=== PATIENT | male | born 1940 | race Caucasian/White ===

== ENCOUNTER 2018-04-17 09:51 | Emergency (ER) | payer MEDICARE, OTHER ==
[~2018-04-17] VITALS: Ht 177.8 cm; Wt 90.9 kg
[~2018-04-17 09:51] MED LIST: AMBIEN5 MG PO; ANTIDEPRESANT; ANTIDEPRESSANT; ASPIR-LOW81 MG PO; ASPIR-LOX325 MG PO; ASPIRIN 81M81 MG/TA2 PO; BUPROPION75 MG PO; CELEXA; CELEXA40 MG PO; COUMADIN 5MG5 MG/TAB PO; CRESTOR; CRESTOR20 MG PO; DULCOLAX TAB5 MG PO; EC NAPROSYN500 MG PO; FERRO-TIME325 MG PO; HCTZ 25MG TAB25 MG PO; HCTZ 25MG25 MG PO; HYDROCHLOROTHIA25 MG PO; HYTRIN 2MG CAPSU2 MG PO; LIPITOR 40MG TA40 MG PO; LISINOPRIL; LOPRESSOR; LORTAB 5/500 501 TAB PO; MECLIZINE25 MG PO; METOPROLOL100 MG PO; OMEPRAZOLE20 MG PO; PERCOCET 325 MG1 TA2 PO; PRILOSEC 20MG20 MG PO; PRINIVIL40 MG PO; REQUIP 0.5MG0.5 MG PO; TERAZOSIN HCL PO; TOPROL XL50 MG PO; ULTRAM 50MG TAB50 MG PO; VIAGRA100 M1; WARFARIN SOD5 MG PO; WATER PILL; WELLBUTRIN 75MG75 MG PO; ZITHROMAX 250M250 MG PO
[2018-04-17 09:57] VITALS: TEMP 97.7
[2018-04-17 10:25] LABS: BASO # 0.1 (0.0-0.2); BASO % 1.4 % (0.0-2.0); EOS # 0.3 (0.0-0.7); EOS % 6.5 % (0-4.0); GRAN # 2.7 (1.4-6.5); GRAN % 54.2 % (42.2-75.2); HEMATOCRIT 44.8 % (42.0-52.0); HEMOGLOBIN 15.3 g/dl (13.5-18.0); LYMPH # 1.4 (1.2-3.4); LYMPH % 28.1 % (20.0-51.0); MEAN CELL VOLUME 93 fl (80.0-100.0); MEAN CORPUSCULAR HEMOGLOBIN 32 pg (27.0-31.0); MEAN CORPUSCULAR HGB CONC 34 g/dl (33.0-37.0); MEAN PLATELET VOLUME 11.3 fl (7.4-10.4); MONO # 0.5 (0.1-0.6); MONO % 9.4 % (1.7-9.3); PLATELET COUNT 167 K/mm3 (130-400); RED BLOOD COUNT 4.83 M/mm3 (4.20-5.60); REDCELL DISTRIBUTION WIDTH-CV 12.7 % (11.5-14.5)
[2018-04-17 10:32] LABS: INR 1.5 (0.8-3.0); PROTHROMBIN TIME 16.7 SECONDS (9.7-12.8)
[2018-04-17 10:38] LABS: ALANINE AMINOTRANSFERASE 35 U/L (21-72); ALBUMIN 3.9 gm/dL (3.5-5.0); ALKALINE PHOSPHATASE 97 U/L (50-136); ANION GAP 4 mmol/L (7-16); AST,SGOT 23 U/L (15-37); BILIRUBIN,TOTAL 0.8 mg/dL (0.0-1.0); BLOOD UREA NITROGEN 18 mg/dL (9-20); CALCIUM 9.7 mg/dL (8.4-10.2); CARBON DIOXIDE 32 mmol/L (22-30); CHLORIDE 105 mmol/L (98-107); CREATININE, serum 0.79 mg/dL (0.66-1.25); GLUCOSE 107 mg/dL (74-106); POTASSIUM 3.9 mmol/L (3.4-5.0); SODIUM 141 mmol/L (137-145)
[2018-04-17 10:52] LABS: COLLECTION METHOD CLEAN CATCH
[2018-04-17 10:57] LABS: MUCOUS Present /lpf; PH 5 (5-8); SQUAMOUS EPITHELIAL 0-2 /hpf; URINE APPEARANCE Clear; URINE BACTERIA None Seen /hpf; URINE BILIRUBIN Negative (NEGATIVE); URINE BLOOD Negative (NEGATIVE); URINE COLOR Yellow; URINE GLUCOSE Negative (NEGATIVE); URINE KETONE Negative (NEGATIVE); URINE LEUKOCYTE ESTERASE Negative (NEGATIVE); URINE NITRATE Negative (NEGATIVE); URINE PROTEIN(semi-quant) Negative (NEGATIVE); URINE RBC 0-2 /hpf; URINE UROBILINOGEN Negative (NEGATIVE); URINE WBC 0-2 /hpf
[2018-04-17 11:01] LABS: TROPONIN-I < 0.012 ng/mL (0.000-0.034)
[2018-04-17] MEDS ORDERED: NEURONTIN300 MG/CAP PO (12:19)
[2018-04-17] MEDS ORDERED: HALDOL .5M0.5 MG/TAB PO (12:22)
[2018-04-17] MEDS ORDERED: ANTIVERT 25MG25 MG PO (12:23)
[2018-04-17] MEDS ORDERED: SEROQUEL XR150 MG PO (12:24)
[2018-04-17] MEDS ORDERED: NEXIUM 20MG20 MG PO (12:24)
[2018-04-17 14:30] VITALS: BP 144/70
[2018-04-17 15:22] VITALS: PULSE 51
== END 2018-04-17 15:22 | disposition home or self-care (01) ==
LOC: COL.ER 09:51
PROVIDERS: Emergency Medicine
DX: R42 Dizziness and giddiness (principal); E78.5 Hyperlipidemia, unspecified; Z90.49 Acquired absence of other specified parts of digestive tract; Z86.711 Personal history of pulmonary embolism; Z86.718 Personal history of other venous thrombosis and embolism; Z90.89 Acquired absence of other organs; Z79.02 Long term (current) use of antithrombotics/antiplatelets
CPT/HCPCS: J2550; J7030

== ENCOUNTER 2019-06-12 14:39 | Emergency (ER) | payer MEDICARE, OTHER ==
[~2019-06-12] VITALS: Ht 177.8 cm; Wt 93.2 kg
[~2019-06-12 14:39] MED LIST changes: +ANTIVERT 25MG25 MG PO; +HALDOL .5M0.5 MG/TAB PO; +NEURONTIN300 MG/CAP PO; +NEXIUM 20MG20 MG PO; +SEROQUEL XR150 MG PO
[2019-06-12 14:50] VITALS: TEMP 98.5
[2019-06-12 15:54] LABS: BASO # 0.1 (0.0-0.2); EOS # 0.3 (0.0-0.7); EOS % 4.9 % (0-4.0); GRAN # 4.6 (1.4-6.5); HEMATOCRIT 44.9 % (42.0-52.0); HEMOGLOBIN 15.3 g/dl (13.5-18.0); LYMPH # 1.3 (1.2-3.4); LYMPH % 18.7 % (20.0-51.0); MEAN CELL VOLUME 92 fl (80.0-100.0); MEAN CORPUSCULAR HEMOGLOBIN 31 pg (27.0-31.0); MEAN CORPUSCULAR HGB CONC 34 g/dl (33.0-37.0); MEAN PLATELET VOLUME 11.4 fl (7.4-10.4); MONO # 0.6 (0.1-0.6); MONO % 9.1 % (1.7-9.3); PLATELET COUNT 167 K/mm3 (130-400); RED BLOOD COUNT 4.89 M/mm3 (4.20-5.60); REDCELL DISTRIBUTION WIDTH-CV 12.9 % (11.5-14.5)
[2019-06-12 16:08] LABS: ALBUMIN 4.1 gm/dL (3.5-5.0); BILIRUBIN,TOTAL 1.6 mg/dL (0.0-1.0); CALCIUM 9.2 mg/dL (8.4-10.2); CREATININE, serum 0.61 (0.66-1.25); POTASSIUM 4.2 mmol/L (3.4-5.0)
[2019-06-12 17:41] VITALS: BP 117/72; PULSE 83
== END 2019-06-12 17:51 | disposition home or self-care (01) ==
LOC: COL.ER 14:39
PROVIDERS: Family Medicine
DX: J18.1 Lobar pneumonia, unspecified organism (principal); I10 Essential (primary) hypertension; Z79.01 Long term (current) use of anticoagulants; Z86.711 Personal history of pulmonary embolism
CPT/HCPCS: J0696; J7030

== ENCOUNTER 2019-07-09 15:15 | Outpatient (RCR) | payer MEDICARE, OTHER | END 2019-09-16 | disposition home or self-care (01) | LOC: MKS.ESL.PT | DX: R42 Dizziness and giddiness (principal) ==

== ENCOUNTER → 2019-10-13 | Outpatient (CLI) | payer MEDICARE, OTHER | LOC: COL.RAD 12:03 | DX: J84.9 Interstitial pulmonary disease, unspecified (principal) | CPT/HCPCS: A9540; A9567 ==

== ENCOUNTER → 2019-11-15 | Outpatient (CLI) | payer MEDICARE, OTHER ==
[2019-11-15 12:05] LABS: BASO # 0.1 (0.0-0.2); BASO % 1.3 % (0.0-2.0); EOS # 0.4 (0.0-0.7); EOS % 4.5 % (0-4.0); GRAN # 5.5 (1.4-6.5); GRAN % 69.5 % (42.2-75.2); HEMATOCRIT 45.9 % (42.0-52.0); HEMOGLOBIN 15.6 g/dl (13.5-18.0); LYMPH # 1.2 (1.2-3.4); LYMPH % 15.7 % (20.0-51.0); MEAN CELL VOLUME 91 fl (80.0-100.0); MEAN CORPUSCULAR HEMOGLOBIN 31 pg (27.0-31.0); MEAN CORPUSCULAR HGB CONC 34 g/dl (33.0-37.0); MEAN PLATELET VOLUME 11.6 fl (7.4-10.4); MONO # 0.7 (0.1-0.6); MONO % 8.6 % (1.7-9.3); PLATELET COUNT 167 K/mm3 (130-400); RED BLOOD COUNT 5.03 M/mm3 (4.20-5.60)
[2019-11-15 20:43] LABS: INR 6.3 (0.8-3.0); PROTHROMBIN TIME 71.4 SECONDS (9.7-12.8)
[2019-11-16 04:53] LABS: CARCINOEMBRYONIC ANTIGEN 3.3 ng/mL (0.0-5.0)
== END ==
LOC: COL.LAB 10:18
PROVIDERS: Internal Medicine
DX: R16.0 Hepatomegaly, not elsewhere classified (principal)

== ENCOUNTER → 2019-11-16 | Outpatient (CLI) | payer MEDICARE, OTHER | LOC: COL.RAD 07:46 | DX: K76.89 Other specified diseases of liver (principal) | CPT/HCPCS: Q9967 ==

== ENCOUNTER → 2019-11-19 | Outpatient (CLI) | payer MEDICARE, OTHER ==
[2019-11-19 12:55] LABS: INR 2.3 (0.8-3.0); PROTHROMBIN TIME 25.9 SECONDS (9.7-12.8)
[2019-11-19 13:01] LABS: ALBUMIN 4.1 gm/dL (3.5-5.0); BILIRUBIN,TOTAL 2.1 mg/dL (0.0-1.0); CALCIUM 10.8 mg/dL (8.4-10.2); CREATININE, serum 0.74 (0.66-1.25); POTASSIUM 4.1 mmol/L (3.4-5.0); TOTAL PROTEIN 7.7 gm/dL (6.4-8.2)
== END ==
LOC: COL.LAB 09:48
PROVIDERS: Internal Medicine
DX: R16.0 Hepatomegaly, not elsewhere classified (principal); Z20.828 Contact with and (suspected) exposure to other viral communicable diseases